=== PATIENT | female | born 1945 | race Caucasian/White ===

== ENCOUNTER 2018-05-25 10:50 | Outpatient (CLI) | payer OTHER | END 2018-05-25 11:07 | disposition home or self-care (01) | LOC: RAD 10:50 → MAMO-SONO 11:15 | DX: M75.41 Impingement syndrome of right shoulder (principal) ==

== ENCOUNTER 2024-10-04 14:55 | Inpatient (IN) | payer OTHER ==
[~2024-10-04] VITALS: Ht 162.6 cm; Wt 70.3 kg
[2024-10-04] MEDS ORDERED: TELMISARTAN40 MG PO (15:22)
[2024-10-04] MEDS ORDERED: METOPROLOL SUCC25 MG PO (15:23)
[2024-10-04 17:47] LABS: PH,URINE 6.5 (5.0-8.0); URINE APPEARANCE Turbid; URINE BILIRRUBIN Negative (NEGATIVE); URINE BLOOD Large; URINE COLOR Yellow; URINE GLUCOSE Negative (NEGATIVE); URINE KETONE Negative (NEGATIVE); URINE LEUKOCYTE Large; URINE NITRATE Negative; URINE UROBILINOGEN 0.2 E.U./dl
[2024-10-04 17:49] LABS: BASO % 0.8 % (0.1-1.2); EOS # 0.27 (0.04-0.54); EOS % 3.2 % (0.7-7.0); HEMATOCRIT 38.4 % (34.1-44.9); HEMOGLOBIN 12.9 g/dL (11.2-15.7); LYMPH # 1.62 (1.18-3.74); LYMPH % 19.3 % (19.3-53.1); MEAN CORPUSCULAR HEMOGLOBIN 26.9 pg (25.6-32.2); MONO # 0.75 (0.24-0.82); MONO % 8.9 % (4.7-12.5); NEUT # 5.65 (1.56-6.13); NEUT % 67.6 % (34.0-71.1); PLATELET COUNT 238 K/uL (163-369); RED BLOOD COUNT 4.79 M/uL (3.93-5.22); RED CELL DISTRIBUTION WIDTH 13.4 % (11.6-14.4)
[2024-10-04 17:51] LABS: URINE CAST 1.76 uL (0.0-1.40); URINE EPITHELIAL CELLS 3.3 uL (0.0-38.8); URINE RBC 324.8 uL (0.0-20.8)
[2024-10-04 18:12] LABS: ALBUMIN 3.5 gm/dL (3.4-5.0); BILIRUBIN TOTAL 0.39 mg/dL (0.3-1.2); CALCIUM 9.3 mg/dL (8.5-10.1); CREATININE SERUM 0.68 mg/dL (0.55-1.02); GFR 83.68; GLOBULINA 3.7 G/DL (2.4-3.5); POTASSIUM 4.02 mEq/L (3.5-5.1); TOTAL PROTEIN 7.2 gm/dL (6.4-8.2)
[2024-10-04 18:14] LABS: URINE BACTERIA > 9821.5 uL (0.0-1933); URINE MUCUS SCANT; URINE PROTEIN 100 (NEGATIVE); URINE WBC > 5548.3 uL (0.0-23.2)
[2024-10-04] MEDS ORDERED: levoFLOXacin IN DEXTROSE 5 % 5 MG/ML PIGGYBAG IV ONE (20:30)
[2024-10-04] MEDS ORDERED: PHENAZOPYRIDINE HCL 100 MG TABLET PO SCH (21:26)
[2024-10-04] MEDS ORDERED: ACETAMINOPHEN 500 MG GEL..CAP PO PRN (21:30)
[2024-10-04] MEDS ORDERED: 0.9 % SODIUM CHLORIDE 1,000 ML IV SCH (21:30)
[2024-10-04] MEDS ORDERED: PHENAZOPYRIDINE HCL 100 MG TABLET PO ONE (23:47)
[2024-10-05 00:37] LABS: INR 1.05; PARTIAL THROMBOPLASTIN TIME 25.2 SECONDS (22.0-34.0); PROTHROMBIN TIME 11.4 SECONDS (9.0-11.5)
[2024-10-05] MEDS ORDERED: MEROPENEM 500 MG/VIAL VIAL IV SCH (02:00)
[2024-10-05] MEDS ORDERED: ENOXAPARIN SODIUM 40 MG/0.4 ML SYRINGE SUBCUTANEO SCH (09:00)
[2024-10-05] MEDS ORDERED: FAMOTIDINE/PF 20 MG in 0.9 % SODIUM CHLORIDE 8 ML IV PUSH SCH (09:00)
[2024-10-05] MEDS ORDERED: LOSARTAN/HYDROCHLOROTHIAZIDE 1 UDTAB TABLET PO SCH (09:00)
[2024-10-05] MEDS ORDERED: METOPROLOL SUCCINATE 25 MG TAB.SR.24H PO SCH (09:00)
[2024-10-05 12:22] VITALS: BP 149/75; O2SAT 100
[2024-10-05] MEDS ORDERED: LACTOBACILLUS ACIDOPHILUS 1 CAP CAP PO SCH (17:00)
[2024-10-05 17:02] VITALS: BP 145/82; O2SAT 99
[2024-10-06 02:57] VITALS: BP 136/72
[2024-10-06 05:25] LABS: BASO % 0.7 % (0.1-1.2); EOS # 0.34 (0.04-0.54); HEMATOCRIT 34.6 % (34.1-44.9); HEMOGLOBIN 11.8 g/dL (11.2-15.7); LYMPH # 1.78 (1.18-3.74); LYMPH % 25.9 % (19.3-53.1); MEAN CORPUSCULAR HEMOGLOBIN 26.7 pg (25.6-32.2); MONO # 0.69 (0.24-0.82); MONO % 10.1 % (4.7-12.5); NEUT # 3.97 (1.56-6.13); NEUT % 57.9 % (34.0-71.1); PLATELET COUNT 202 K/uL (163-369); RED BLOOD COUNT 4.42 M/uL (3.93-5.22); RED CELL DISTRIBUTION WIDTH 13.2 % (11.6-14.4)
[2024-10-06 05:50] LABS: BILIRUBIN TOTAL 0.91 mg/dL (0.3-1.2); CALCIUM 8.8 mg/dL (8.5-10.1); CREATININE SERUM 0.64 mg/dL (0.55-1.02); GFR 89.74; GLOBULINA 2.9 G/DL (2.4-3.5); MAGNESIUM 1.9 mg/dL (1.8-2.4); POTASSIUM 3.76 mEq/L (3.5-5.1); TOTAL PROTEIN 5.9 gm/dL (6.4-8.2)
[2024-10-06 06:27] LABS: C-REACTIVE PROTEIN 0.3 MG/DL (0.00-0.29)
[2024-10-06 09:48] VITALS: BP 143/72; O2SAT 99
[2024-10-06 09:57] LABS: URINE APPEARANCE Clear; URINE BILIRRUBIN Negative (NEGATIVE); URINE BLOOD Negative; URINE COLOR Dark Yellow; URINE GLUCOSE Negative (NEGATIVE); URINE KETONE Negative (NEGATIVE); URINE LEUKOCYTE Small; URINE NITRATE Positive; URINE PROTEIN Negative (NEGATIVE)
[2024-10-06 10:04] LABS: URINE BACTERIA 25.6 uL (0.0-1933); URINE EPITHELIAL CELLS 40.8 uL (0.0-38.8); URINE RBC 2.5 uL (0.0-20.8); URINE WBC 80.8 uL (0.0-23.2)
[2024-10-06 10:40] LABS: URINE CAST 0.14 uL (0.0-1.40)
[2024-10-06] MEDS ORDERED: FAMOtidine 20 MG TABLET PO SCH (17:00)
[2024-10-06 18:32] VITALS: BP 174/78
[2024-10-07 02:18] VITALS: BP 152/78; O2SAT 95
[2024-10-07 09:20] VITALS: BP 144/81; O2SAT 97
[2024-10-07 18:26] VITALS: BP 154/83
[2024-10-08 02:40] VITALS: BP 160/84; O2SAT 97
[2024-10-08 10:05] VITALS: BP 154/82
[2024-10-08 17:33] VITALS: BP 159/87
[2024-10-09 01:48] VITALS: BP 166/75; O2SAT 97
[2024-10-09 08:41] VITALS: BP 160/70; O2SAT 98
[2024-10-09 15:29] LABS: BASO % 1.2 % (0.1-1.2); EOS # 0.33 (0.04-0.54); EOS % 5.5 % (0.7-7.0); HEMATOCRIT 36.5 % (34.1-44.9); HEMOGLOBIN 12.3 g/dL (11.2-15.7); LYMPH # 1.49 (1.18-3.74); MEAN CORPUSCULAR HEMOGLOBIN 26.7 pg (25.6-32.2); MONO % 10.1 % (4.7-12.5); NEUT # 3.46 (1.56-6.13); NEUT % 57.9 % (34.0-71.1); PLATELET COUNT 219 K/uL (163-369); RED CELL DISTRIBUTION WIDTH 13.2 % (11.6-14.4)
[2024-10-09 15:51] LABS: ALBUMIN 3.3 gm/dL (3.4-5.0); BILIRUBIN TOTAL 0.47 mg/dL (0.3-1.2); CALCIUM 9.1 mg/dL (8.5-10.1); CREATININE SERUM 0.7 mg/dL (0.55-1.02); GFR 80.93; GLOBULINA 3.1 G/DL (2.4-3.5); POTASSIUM 3.91 mEq/L (3.5-5.1); TOTAL PROTEIN 6.4 gm/dL (6.4-8.2)
[2024-10-09 16:59] VITALS: BP 159/79
[2024-10-10 01:11] VITALS: BP 185/90; O2SAT 98
[2024-10-10 08:18] VITALS: BP 150/80; O2SAT 97
[2024-10-10] MEDS ORDERED: LOSARTAN/HYDROCHLOROTHIAZIDE 1 TAB TABLET PO SCH (09:00)
[2024-10-10 17:46] VITALS: BP 159/71; O2SAT 97
[2024-10-11 02:57] VITALS: BP 145/84; O2SAT 98
[2024-10-11 09:22] VITALS: BP 155/85; O2SAT 98
== END 2024-10-11 14:55 | disposition home or self-care (01) | DRG 690 ==
LOC: ER 15:15 → SEC-K 22:03 → MEDJ 10-05 11:27
PROVIDERS: General Practice; Internal Medicine Infectious Disease; ADMIT Internal Medicine; ATTEND Internal Medicine
PROC: BW21ZZZ Computerized Tomography (CT Scan) of Abdomen and Pelvis (ICD-10-PCS; principal; 2024-10-04)
PROC: 8E0ZXY6 Isolation (ICD-10-PCS; 2024-10-05)
DX: N39.0 Urinary tract infection, site not specified (principal); Z16.23 Resistance to quinolones and fluoroquinolones; Z16.11 Resistance to penicillins; Z16.29 Resistance to other single specified antibiotic; B96.20 Unspecified Escherichia coli [E. coli] as the cause of diseases classified elsewhere; I10 Essential (primary) hypertension

== ENCOUNTER 2024-10-19 17:30 | Inpatient (IN) | payer OTHER ==
[~2024-10-19] VITALS: Ht 162.6 cm; Wt 70.3 kg
[~2024-10-19 17:30] MED LIST: METOPROLOL SUCC25 MG PO; TELMISARTAN40 MG PO
--- NOTE | 2024-10-19 19:01 | NUR ---
PACIENTE ALERTA Y OIRNETADO X3 QUIEN REFIE VENIR POR PROBLEMAS AL ORINAR. ESPECIFICA ARDOR AL ORINAR, Y FUE ZEINA DE MANUEL EL REED 19 POR UTI.
[2024-10-19 20:12] LABS: BASO % 0.7 % (0.1-1.2); EOS # 0.21 (0.04-0.54); EOS % 2.6 % (0.7-7.0); HEMATOCRIT 39.6 % (34.1-44.9); HEMOGLOBIN 13.3 g/dL (11.2-15.7); LYMPH # 1.58 (1.18-3.74); LYMPH % 19.6 % (19.3-53.1); MEAN CORPUSCULAR HEMOGLOBIN 26.5 pg (25.6-32.2); MONO # 0.82 (0.24-0.82); MONO % 10.1 % (4.7-12.5); NEUT # 5.38 (1.56-6.13); NEUT % 66.6 % (34.0-71.1); PLATELET COUNT 269 K/uL (163-369); RED BLOOD COUNT 5.01 M/uL (3.93-5.22)
--- NOTE | 2024-10-19 20:28 | NUR ---
SE ORIENTA A PACIENTE SOBRE TX MEDICO, REFIERE ENTENDER. SE REALIZAN MUESTRAS DE LABORATORIO BAJO MEDIDAS ASEPTICAS. SE COORDINA AIME X. PACIENTE MANEJADA POR . PENDIENTE RE-EVALUACION MEDICA.
[2024-10-19 20:35] LABS: INR 1.02; PARTIAL THROMBOPLASTIN TIME 26.8 SECONDS (22.0-34.0); PROTHROMBIN TIME 11.1 SECONDS (9.0-11.5)
[2024-10-19 20:38] LABS: ALBUMIN 3.9 gm/dL (3.4-5.0); BILIRUBIN TOTAL 0.55 mg/dL (0.3-1.2); CALCIUM 9.7 mg/dL (8.5-10.1); CREATININE SERUM 0.8 mg/dL (0.55-1.02); GFR 69.37; GLOBULINA 3.9 G/DL (2.4-3.5); POTASSIUM 4.06 mEq/L (3.5-5.1); TOTAL PROTEIN 7.8 gm/dL (6.4-8.2)
[2024-10-19 21:19] LABS: URINE APPEARANCE Turbid; URINE BILIRRUBIN Negative (NEGATIVE); URINE BLOOD Moderate; URINE COLOR Yellow; URINE GLUCOSE Negative (NEGATIVE); URINE KETONE Negative (NEGATIVE); URINE LEUKOCYTE Large; URINE NITRATE Negative; URINE PROTEIN 30 (NEGATIVE); URINE UROBILINOGEN 0.2 E.U./dl
[2024-10-19 21:23] LABS: URINE EPITHELIAL CELLS 4.7 uL (0.0-38.8); URINE RBC 11.7 uL (0.0-20.8)
[2024-10-19 21:25] LABS: URINE BACTERIA > 9821.5 uL (0.0-1933); URINE CAST 0.58 uL (0.0-1.40); URINE WBC > 5548.3 uL (0.0-23.2)
[2024-10-19] MEDS ORDERED: levoFLOXacin IN DEXTROSE 5 % 500MG/100ML PIGGYBAG IV ONE ×2 (21:32→21:45)
[2024-10-19] MEDS ORDERED: 0.9 % SODIUM CHLORIDE 1,000 ML IV SCH (22:15)
[2024-10-19] MEDS ORDERED: ACETAMINOPHEN 500 MG GEL..CAP PO PRN (22:30)
[2024-10-19] MEDS ORDERED: ENALAPRILAT DIHYDRATE 1.25 MG/ML VIAL IV PRN (22:30)
[2024-10-20 02:59] VITALS: BP 152/88; O2SAT 94
[2024-10-20] MEDS ORDERED: METOPROLOL SUCCINATE 25 MG TAB.SR.24H PO SCH (09:00)
[2024-10-20] MEDS ORDERED: ENOXAPARIN SODIUM 40 MG/0.4 ML SYRINGE SUBCUTANEO SCH (09:00)
[2024-10-20] MEDS ORDERED: FAMOTIDINE/PF 20 MG in 0.9 % SODIUM CHLORIDE 8 ML IV PUSH SCH (09:00)
[2024-10-20] MEDS ORDERED: levoFLOXacin IN DEXTROSE 5 % 150 ML IV SCH (09:00)
[2024-10-20 09:30] VITALS: BP 144/79
[2024-10-20 16:52] VITALS: BP 121/74; O2SAT 95
[2024-10-20] MEDS ORDERED: LACTOBACILLUS ACIDOPHILUS 1 CAP CAP PO SCH (17:00)
[2024-10-20] MEDS ORDERED: MEROPENEM 500 MG/VIAL VIAL IV SCH (18:00)
[2024-10-21 02:40] VITALS: BP 126/76; O2SAT 99
[2024-10-21 07:57] LABS: BASO % 0.8 % (0.1-1.2); EOS # 0.39 (0.04-0.54); EOS % 6.2 % (0.7-7.0); HEMATOCRIT 34.6 % (34.1-44.9); HEMOGLOBIN 11.4 g/dL (11.2-15.7); LYMPH # 1.87 (1.18-3.74); LYMPH % 29.8 % (19.3-53.1); MEAN CORPUSCULAR HEMOGLOBIN 26.4 pg (25.6-32.2); MONO # 0.72 (0.24-0.82); MONO % 11.5 % (4.7-12.5); NEUT # 3.21 (1.56-6.13); NEUT % 51.2 % (34.0-71.1); PLATELET COUNT 224 K/uL (163-369); RED BLOOD COUNT 4.32 M/uL (3.93-5.22); RED CELL DISTRIBUTION WIDTH 13.1 % (11.6-14.4)
[2024-10-21 08:00] LABS: ALBUMIN 3.2 gm/dL (3.4-5.0); ALKALINE PHOSPHATASE 74 U/L (50-136); ALT/SGPT 33 U/L (12-78); ANION GAP 9 (10.0-20.0); AST/SGOT 19 U/L (15-37); BILIRUBIN TOTAL 0.44 mg/dL (0.3-1.2); BLOOD UREA NITROGEN 20 mg/dL (7-18); BUN CREA RATIO 27 (7.0-25.0); CALCIUM 9.1 mg/dL (8.5-10.1); CARBON DIOXIDE 28 mEq/L (21-32); CHLORIDE 110 mmol/L (98-107); CREATININE SERUM 0.74 mg/dL (0.55-1.02); GLOBULINA 3.1 G/DL (2.4-3.5); GLUCOSE FASTING 135 mg/dL (65-100); OSMOLALITY SERUM 290 MOSM/KG (275-295); PHOSPHOROUS 3.8 mg/dL (2.5-4.9); POTASSIUM 3.94 mEq/L (3.5-5.1); SODIUM 143 mmol/L (136-145); TOTAL PROTEIN 6.3 gm/dL (6.4-8.2)
[2024-10-21 08:01] LABS: C-REACTIVE PROTEIN < 0.29 MG/DL (0.00-0.29)
[2024-10-21 09:05] VITALS: BP 159/73; O2SAT 99
[2024-10-21] MEDS ORDERED: levoFLOXacin IN DEXTROSE 5 % 5 MG/ML PIGGYBAG IV SCH (17:00)
[2024-10-21 18:20] VITALS: BP 151/85; O2SAT 95
[2024-10-22 01:55] VITALS: BP 160/50; O2SAT 97
[2024-10-22 08:07] LABS: PH,URINE 6.5 (5.0-8.0); URINE APPEARANCE Clear; URINE BILIRRUBIN Negative (NEGATIVE); URINE BLOOD Negative; URINE COLOR Yellow; URINE GLUCOSE Negative (NEGATIVE); URINE KETONE Negative (NEGATIVE); URINE LEUKOCYTE Negative; URINE NITRATE Negative; URINE PROTEIN Negative (NEGATIVE); URINE UROBILINOGEN 0.2 E.U./dl
[2024-10-22 08:11] LABS: URINE EPITHELIAL CELLS 1.8 uL (0.0-38.8); URINE WBC 12.1 uL (0.0-23.2)
[2024-10-22 08:29] LABS: URINE BACTERIA 2.4 uL (0.0-1933); URINE RBC 1.1 uL (0.0-20.8)
[2024-10-22 08:52] LABS: CALCIUM 9.2 mg/dL (8.5-10.1); CREATININE SERUM 0.6 mg/dL (0.55-1.02); GFR 96.68; POTASSIUM 4.16 mEq/L (3.5-5.1)
[2024-10-22 09:41] VITALS: BP 150/80; O2SAT 98
[2024-10-22 18:01] VITALS: BP 168/82; O2SAT 99
[2024-10-23 01:51] VITALS: BP 158/78; O2SAT 98
[2024-10-23 08:15] VITALS: BP 149/77
== END 2024-10-23 15:40 | disposition home or self-care (01) | DRG 690 ==
LOC: ER 18:09 → SEC-K 22:32 → MEDI 22:32
PROVIDERS: General Practice; Internal Medicine Infectious Disease; Student in an Organized Health Care Education/Training Program; ADMIT Internal Medicine; ATTEND Internal Medicine
PROC: BW4GZZZ Ultrasonography of Pelvic Region (ICD-10-PCS; principal; 2024-10-20)
DX: N39.0 Urinary tract infection, site not specified (principal); B96.29 Other Escherichia coli [E. coli] as the cause of diseases classified elsewhere; R33.8 Other retention of urine